=== PATIENT | male | born 1945 | race Caucasian/White ===

== ENCOUNTER → 2017-05-28 | Outpatient (CLI) | payer MEDICARE, BC ==
[~2017-05-28] MED LIST: ASPI-516 CHEW; METO1TAB42 PO; SIMV20TA PO
--- NOTE | 2017-05-29 08:41 | RSPPFT ---
DATE OF PROCEDURE: 05/28/17 COMMENTS: Spirometry shows FVC of 3.3 at 81% of predicted, FEV1 of 2.7 at 86%, FEV1/FVC ratio is normal. Flow is normal at FEF 25, FEF 50, FEF 75 and FEF 25-75. There is no significant response after bronchodilator treatment. Lung volumes show residual volume is slightly increased. TLC is normal. Diffusion capacity is normal. Flow volume loop indicates a normal pattern. IMPRESSION: 1. Normal spirometry. 2. No response after bronchodilator treatment. 3. Lung volumes show mild hyperinflation. 4. Diffusion capacity is normal.
== END ==
LOC: HRSP 11:46
PROVIDERS: ATTEND Internal Medicine Cardiovascular Disease
DX: R06.02 Shortness of breath (principal)
CPT/HCPCS: 94060; 94726; 94729